=== PATIENT | female | born 1965 | race Caucasian/White ===

== ENCOUNTER 2024-08-22 15:01 | Emergency (ER) | payer OTHER, SELFPAY ==
[2024-08-22 15:10] VITALS: BP 128/80
[2024-08-22 16:06] LABS: Hematocrit 34.9 % (37.0-47.0); Hemoglobin 11.5 g/dL (12.0-16.0); Mean Corp Hgb Conc. 33.0 g/dL (33.0-37.0); Mean Corpuscular Volume 88.6 fL (81.0-99.0); Nucleated Red Blood Cells % 0 %; Platelet Count 291 10^3/uL (130-400); Red Cell Dist. Width 12.8 % (11.5-14.5)
[2024-08-22 16:23] LABS: ALT (SGPT) 10 U/L (0-35); AST (SGOT) 17 U/L (14-36); Albumin 4.3 g/dl (3.5-5.0); Alkaline Phosphatase 50 U/L (38-126); Blood Urea Nitrogen 13 mg/dl (7-17); Calcium 9.7 mg/dl (8.4-10.2); Carbon Dioxide 25 mmol/L (22-30); Chloride 107 mmol/L (98-107); Glucose 107 mg/dl (70-99); Potassium 4.6 mmol/L (3.5-5.1); Sodium 135 mmol/L (135-145); Total Protein 7.4 g/dl (6.3-8.2); eGFR > 60.00
[2024-08-22 18:00] VITALS: BP 125/65
--- NOTE | 2024-08-22 18:23 | ED.GENMED ---
History of Present Illness
General
Chief Complaint: Back Pain
Source: patient
Exam Limitations: none
Time Seen by Provider: 08/22/24 18:23
History of Present Illness
History of Present Illness:
59yoF with a history of low blood pressure and remote history of uterine cancer s/p hysterectomy presenting with her daughter and granddaughter for evaluation of back pain. Patient reports pain in between her shoulder blades that started around
noon today. She was sitting when the pain started. She also reports nausea and dry heaves. Pain is still present but is much better. Nothing seems to make the pain better or worse. She denies any trauma to the area and believes her pain may be
from sitting too long in the chair. This is her 3rd similar episode in the past 3 weeks. She experienced chest discomfort with the first episode but the following 2 episodes she only had pain in her back. She became worried that she may be having
a heart attack so came to the ED. She denies any shortness of breath, diaphoresis, syncope. Of note, patient has also been experiencing intermittent bouts of lightheadedness over the past 1.5 years. She was told by her PCP that this was related
to low blood pressure and she was prescribed a salt tablet.
Phy Exam
General Physical Exam
General Presentation: well appearing and no apparent distress
General Skin: warm and dry
General Habitus: normal
General Mental: alert
ENT Exam
ENT Exam: normocephalic
Cardiovascular Exam
Cardiovascular Exam: regular rate/rhythm, no edema, no murmur and normal peripheral pulses (2+ radial pulses bilaterally)
Pulmonary Exam
Pulmonary Exam: lungs clear, no respiratory distress, no rales, no crackles, no rhonchi and no wheezing
Gastrointestinal Exam
Gastrointestinal Exam: non tender, soft and non distended
Neurological Exam
Neurological Exam: alert
Jason Coma Scale
Eye Opening: Spontaneous
Verbal Response: Oriented
Motor Response: Obeys Commands
GCS Total Score: 15
Skin Exam
Skin Exam: normal color and warm/dry
Psychiatric Exam
Psychiatric Exam: normal mood/affect
Course
Orders/Labs/Results
Orders:
Orders
08/22/24 15:16
Electrocardiogram (*1) Urgent
Reason for Study: Vertigo / Dizzy
08/22/24 15:17
EKG- Treatment ONCE
08/22/24 15:35
Complete Blood Count/With Diff Urgent
Comprehensive Metabolic Panel Urgent
08/22/24 18:42
Cardiac Monitoring- Treatment ONCE
08/22/24 18:50
Electrocardiogram (*1) Urgent
Reason for Study: Other
Other Reason for Exam: nausea, back pain
EKG- Treatment ONCE
08/22/24 19:28
D-Dimer Urgent
Troponin I Urgent
08/22/24 20:29
CR Chest - 2 Views Urgent
Comment:
Reason For Exam: upper back pain
Abnormal Lab Results
08/22/24
15:35
RBC 3.94 L 10^6/uL
(4.20-5.40)
Hgb 11.5 L g/dL
(12.0-16.0)
Hct 34.9 L %
(37.0-47.0)
Glucose 107 H mg/dl
(70-99)
08/22/24 15:35
08/22/24 15:35
Vital Signs
Initial and Last Documented VS:
Initial Vital Signs
Temp Pulse Resp BP Pulse Ox
98.4 F 71 20 128/80 98
08/22/24 15:10 08/22/24 15:10 08/22/24 15:10 08/22/24 15:10 08/22/24 15:10
Last Documented Vital Signs
Temp Pulse Resp BP Pulse Ox
98.4 F 62 16 123/62 94
08/22/24 15:10 08/22/24 18:00 08/22/24 18:00 08/22/24 20:00 08/22/24 20:30
MDM/Problems Addressed
Differential Diagnosis Includes:
59yoF here with upper back pain that began around noon today. Associated with nausea and dry heaves. Now improved. VSS. She is well appearing in no distress. There is no reproducible tenderness on exam. BP 131/74 in R arm and 136/70 in L arm.
Differential diagnosis includes but is not limited to: musculoskeletal, esophagitis, ACS, PE
Initial ED plan: Labs obtained in triage. CBC and CMP overall unremarkable. EKG shows NSR with nonspecific ST changes. Will check troponin, D-dimer, and CXR vs. CT depending on D-dimer results.
*Pulse Oximetry
SaO2: 98
Oxygen Mode of Delivery: Room air
Patient hypoxic: no (98%)
*EKG
Interpreted by ED Provider?: Yes
EKG Intrepretation Date: 08/22/24
Heart Rate: 68
Rate: normal
Rhythm: sinus
[place]: normal axis
Interval: normal interval
QRS Pattern: normal QRS
Ischemia: non-specific ST changes
*Critical Care Note
Total Time (30-74mins, 75-104mins- exclusive of procedures): Not Applicable
Update Note
Update Note:
Troponin within normal limits. D-dimer normal making PE very unlikely. Chest x-ray obtained which appears normal. On reassessment, she reports complete resolution of her back discomfort. No indication for hospitalization. She was advised to
follow-up closely with her PCP and ED return precautions reviewed. Patient discharged in stable condition.
ED Attending Note
-
Portions of this chart may have been created with voice recognition software.� Occasional wrong word or��sound alike� substitutions may have occurred due to the inherent limitations of voice recognition software.
Discharge Plan
Departure
Patient Disposition: Home (Routine Discharge)
Date of Disposition: 08/22/24
Time of Disposition: 21:44
Patient with high blood pressure during this ER visit?: No
Discharge Problem:
Acute upper back pain
Instructions: Upper Back Pain (DC)
Referrals:
Leobardo Smalls MD [Family Provider, Internal Medicine]
Activity Restrictions/Additional Instructions:
Please follow-up with your family doctor in the next 2-3 days. Return to the ER with any new or worsening symptoms.
Interventions
Interventions:
*Risk Screen - Suicide Last Done: 08/22/24 15:10
*Neglect/Abuse Screening Last Done: 08/22/24 15:10
ED-Musculoskeletal Assessment Last Done: 08/22/24 20:00
Discharge Date and Time
Discharge Date/Time: 08/22/24 21:57
Print Language: SLOVAK
--- NOTE | 2024-08-22 18:37 | EDRN ---
Jerod BRIONES in room w/ pt at this time.
[2024-08-22 20:00] VITALS: BP 123/62
[2024-08-22 20:27] LABS: D-Dimer < 0.27 ug/mlFEU (0.00-0.50)
[2024-08-22 20:52] LABS: Troponin I < 0.012 ng/ml
== END 2024-08-22 21:57 | disposition home or self-care (01) ==
LOC: EMR 15:01
PROVIDERS: Emergency Medicine; Physician Assistant; EMERGENCY PHYSICIAN Emergency Medicine; FAMILY PHYSICIAN Internal Medicine
DX: M54.6 Pain in thoracic spine (principal); R11.0 Nausea; R42 Dizziness and giddiness; I95.9 Hypotension, unspecified; Z85.42 Personal history of malignant neoplasm of other parts of uterus; Z91.041 Radiographic dye allergy status; Z91.013 Allergy to seafood
CPT/HCPCS: 99284; 71046; 80053; 84484; 85025; 85379; 93005